=== PATIENT | female | born 1940 | race Caucasian/White ===

== ENCOUNTER 2018-12-25 09:05 | Emergency (ER) | payer MEDICARE ==
[~2018-12-25] VITALS: Ht 154.9 cm; Wt 60.0 kg
[2018-12-25] MEDS ORDERED: LEVO75 PO (09:35)
[2018-12-25 10:13] VITALS: BP 113/89
== END 2018-12-25 11:16 | disposition home or self-care (01) ==
LOC: EMS 09:06
DX: H10.89 Other conjunctivitis (principal); B99.9 Unspecified infectious disease; E03.9 Hypothyroidism, unspecified; Z79.899 Other long term (current) drug therapy

== ENCOUNTER 2019-09-26 22:13 | Emergency (ER) | payer MEDICARE ==
[~2019-09-26] VITALS: Ht 160 cm; Wt 55.4 kg
[~2019-09-26 22:13] MED LIST: LEVO75 PO
[2019-09-26] MEDS ORDERED: 0.9% SODIUM CHLORIDE 10 ML SYRINGE IVP PRN (23:00)
[2019-09-26 23:37] LABS: BASOPHILS % (AUTO) 0.6 % (0.0-2.0); EOSINOPHILS % (AUTO) 2.8 % (1.0-6.0); HEMOGLOBIN 14.2 g/dL (12.0-16.0); LYMPHOCYTES # (AUTO) 0.9 K/uL (1.0-4.8); LYMPHOCYTES % (AUTO) 15.8 % (22.0-44.0); MEAN CORPUSCULAR HEMOGLOBIN 30.4 pg (26.0-34.0); MEAN CORPUSCULAR HGB CONC 33.8 G/dL (31.0-37.0); MEAN CORPUSCULAR VOLUME 90 fL (80-100); MONOCYTES # (AUTO) 0.4 K/uL (0.1-1.0); NEUTROPHILS # (AUTO) 4.3 K/uL (1.8-7.7); NEUTROPHILS % (AUTO) 73.8 % (40.0-70.0); PLATELET COUNT (AUTO) 144 K/uL (150-450); RED BLOOD CELL COUNT(AUTO) 4.67 MIL/uL (4.00-5.20); RED CELL DISTRIBUTION WIDTH 12.8 % (11.5-14.5)
[2019-09-26 23:48] LABS: PROTHROMBIN TIME 9.9 SEC (9.4-11.6)
[2019-09-26 23:55] LABS: ANION GAP 6 mmol/L (8-16); CALCIUM, TOTAL 8.9 mg/dL (8.8-10.5); CARBON DIOXIDE 32 mmol/L (22-29); CHLORIDE 105 mmol/L (98-107); CREATININE 0.59 mg/dL (0.60-1.30); GLUCOSE,RANDOM 112 mg/dL (70-110); POTASSIUM 3.6 mmol/L (3.5-5.1); SODIUM SERUM 143 mmol/L (136-145); UREA NITROGEN, BLOOD 10 mg/dL (7-18)
[2019-09-26 23:57] LABS: GLOMERULAR FILTR. RATE CALC > 60 mL/min (>60)
[2019-09-27 00:01] LABS: ALANINE AMINOTRANSFERASE 11 U/L (12-78); ALBUMIN 3.1 g/dL (3.4-5.0); ALKALINE PHOSPHATASE 69 U/L (46-116); ASPARTATE AMINOTRANSFERASE 13 U/L (15-37); BILIRUBIN,TOTAL 0.3 mg/dL (0.1-1.0); TOTAL PROTEIN, SERUM 6.5 g/dL (6.4-8.2)
[2019-09-27 00:05] LABS: B-TYPE NATRIURETIC PEPTIDE 86 pg/mL (0-100)
[2019-09-27 03:09] VITALS: BP 114/61
== END 2019-09-27 03:34 | disposition home or self-care (01) ==
LOC: EMS 22:13
DX: R07.89 Other chest pain (principal); F03.90 Unspecified dementia, unspecified severity, without behavioral disturbance, psychotic disturbance, mood disturbance, and anxiety; E03.9 Hypothyroidism, unspecified; Z79.899 Other long term (current) drug therapy
CPT/HCPCS: 83605; 93005